=== PATIENT | male | born 1960 ===

== ENCOUNTER 2018-02-27 21:42 | Emergency (ER) | payer MEDICARE, BC, SELFPAY ==
[2018-02-27 21:52] VITALS: BP 114/80; PULSE 89; RESP 16; TEMP 36.7; O2SAT 98
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
--- NOTE | 2018-02-27 22:23 | DI.REPORT_ITS ---
SYMPTOM/DIAGNOSIS: TRAUMA LEFT FOOT: There is a fracture extending transversely through the base of the 5th metatarsal which is nondisplaced. No additional fractures are seen. There are no abnormal bony lucencies. IMPRESSION: Fracture of the base of the 5th metatarsal.
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
[2018-02-27 23:55] VITALS: BP 114/80; PULSE 89; RESP 16; TEMP 36.7; O2SAT 98
== END 2018-02-27 23:58 | disposition home or self-care (01) ==
PROVIDERS: Emergency Provider Emergency Medicine
DX: S92.355A Nondisplaced fracture of fifth metatarsal bone, left foot, initial encounter for closed fracture (principal); V18.0XXA Pedal cycle driver injured in noncollision transport accident in nontraffic accident, initial encounter; Y93.55 Activity, bike riding
CPT/HCPCS: 28470 ×2; 73630; E0114; L4361